=== PATIENT | male | born 1965 | race Caucasian/White ===

== ENCOUNTER 2017-02-22 12:46 | Emergency (ER) | payer OTHER ==
[2017-02-22 13:05] VITALS: BP 126/89
[2017-02-22] MEDS ORDERED: Lidocaine 1% MPF* 2 ML VIAL INJ ONE (13:20)
--- NOTE | 2017-02-22 13:58 | ED ---
Laceration/Wound HPI - HPI Summary HPI Summary: Patient presents to the with laceration to the webbing of the 4th and 5th fingers of the right hand from a glass jar 1 hour prior to arrival. Minimal blood loss. Tetanus UTD. He denies pain, numbness or tingling. Denies temperature or color changes. Denies any other symptoms and otherwise feels well. - History of Current Complaint Stated Complaint: HAND LAC Time Seen by Provider: 02/22/17 13:09 Hx Obtained From: Patient Mechanism of Injury: Sharp/Blunt Trauma Onset/Duration: Sudden Onset Aggravating: Nothing Alleviating: Nothing Timing: Constant Onset Severity: Mild Current Severity: Mild Pain Intensity: 1 Pain Scale Used: 0-10 Numeric Related Hx: Dominant Hand (Right) - Allergy/Home Medications Allergies/Adverse Reactions: Allergies Allergy/AdvReac Type Severity Reaction Status Date / Time No Known Allergies Allergy Verified 02/22/17 13:05 PMH/Surg Hx/FS Hx/Imm Hx Previously Healthy: Yes Endocrine/Hematology History: Denies: Hx Diabetes, Hx Thyroid Disease Cardiovascular History: Denies: Hx Hypertension Respiratory History: Denies: Hx Asthma, Hx Chronic Obstructive Pulmonary Disease (COPD) GI History: Denies: Hx Ulcer - Surgical History Surgery Procedure, Year, and Place: Vasectomy Infectious Disease History: No Infectious Disease History: Denies: Hx Hepatitis, Hx Human Immunodeficiency Virus (HIV), Traveled Outside the in Last 30 Days - Social History Occupation: Employed Full-time Lives: With Family Alcohol Use: Occasionally Hx Substance Use: No Substance Use Type: Reports: None Hx Tobacco Use: No Smoking Status (MU): Never Smoked Tobacco Review of Systems Constitutional: Negative Eyes: Negative Cardiovascular: Negative Respiratory: Negative Genitourinary: Negative Positive: no symptoms reported, see HPI Positive: Other - laceration to the right webbing of the 4th and 5th fingers Neurological: Negative Psychological: Normal All Other Systems Reviewed And Are Negative: Yes Physical Exam Triage Information Reviewed: Yes Vital Signs On Initial Exam: Initial Vitals Temp Pulse Resp BP Pulse Ox 98.8 F 70 16 126/89 98 02/22/17 12:59 02/22/17 12:59 02/22/17 12:59 02/22/17 12:59 02/22/17 12:59 Vital Signs Reviewed: Yes Appearance: Positive: Well-Appearing, Well-Nourished Skin: Positive: Warm, Skin Color Reflects Adequate Perfusion, Other - laceration to the right webbing of the 4th and 5th fingers Eyes: Positive: Normal, JAGJIT Neck: Positive: Supple, No Lymphadenopathy Respiratory/Lung Sounds: Positive: Clear to Auscultation, Breath Sounds Present Cardiovascular: Positive: Normal, RRR, Pulses are Symmetrical in both Upper and Lower Extremities Musculoskeletal: Positive: Normal, Strength/ROM Intact Neurological: Positive: Sensory/Motor Intact, Alert, Oriented to Person Place, Time Psychiatric: Positive: Normal Diagnostics - Vital Signs Vital Signs Temp Pulse Resp BP Pulse Ox 02/22/17 12:59 98.8 F 70 16 126/89 98 - Laboratory Lab Statement: Any lab studies that have been ordered have been reviewed, and results considered in the medical decision making process. Laceration Repair Course/Dx - Course Course Of Treatment: laceration to the right webbing of the 4th and 5th fingers from a glass object. tetanus UTD. Prefers adhesive glue. It was explained he would need glue plus to isidro tape the 2 fingers together so the laceration does not splint open more. He agrees. 3 layers adhesive glue applied. Wrapped with gauze after dried and isidro taped the 2 fingers together. - Differential Dx Differental Diagnoses: Avulsion, Suture Removal, Tendon Laceration - Clinical Impression Provider Diagnoses: Laceration Discharge - Discharge Plan Condition: Stable Disposition: HOME Patient Education Materials: Skin Adhesive Care (ED) Referrals: No Primary Care Phys,NOPCP [Primary Care Provider] - Additional Instructions: Keep the area covered and wrapped with fingers isidro taped for 2-3 days. If you notice then the glue begins to come off and the area begins to open, isidro tape again for another 2 days. If you develop redness, red streaking up the hand, warmth or swelling - return to the right away Images - Images Hands: 1 - laceration to the right webbing of the 4th and 5th fingers; patient prefers to try adhesive.
== END 2017-02-22 13:54 | disposition home or self-care (01) ==
LOC: UCEAST 12:46
DX: S61.411A Laceration without foreign body of right hand, initial encounter (principal); W25.XXXA Contact with sharp glass, initial encounter; Y92.9 Unspecified place or not applicable
CPT/HCPCS: 99211; G0463

== ENCOUNTER 2018-11-14 07:02 | Emergency (ER) | payer OTHER ==
[2018-11-14 07:23] VITALS: BP 128/80
--- NOTE | 2018-11-14 07:36 | UC ---
General HPI - HPI Summary HPI Summary: Patient states he has URI symptoms for the past week. Mainly dry cough and sore throat. [place] worse yesterday and felt warm. Today feels slightly better. No fever. Good PO. Taking dayquil on and off as well as ibuprofen. No N/V/D. No hx of inhalers. No smoking hx. Meds; Reviewed - History of Current Complaint Chief Complaint: UCRespiratory Stated Complaint: COLD SYMP Time Seen by Provider: 11/14/18 07:28 Pain Intensity: 3 - Allergy/Home Medications Allergies/Adverse Reactions: Allergies Allergy/AdvReac Type Severity Reaction Status Date / Time No Known Allergies Allergy Verified 11/14/18 07:18 Home Medications: Home Medications Ascorbic Acid [Vitamin C] 1 tab PO DAILY 11/14/18 [History Confirmed 11/14/18] Dm/PE/Acetaminophen/Doxylamine [Vicks Dayquil/Nyquil Cold] 1 mis PO ONCE PRN [History Confirmed 11/14/18] Ibuprofen 200 mg PO ONCE PRN 11/14/18 [History Confirmed 11/14/18] PMH/Surg Hx/FS Hx/Imm Hx Previously Healthy: Yes - Surgical History Surgical History: Yes Surgery Procedure, Year, and Place: Vasectomy - Social History Alcohol Use: Occasionally Substance Use Type: None Smoking Status (MU): Never Smoked Tobacco - Immunization History Most Recent Tetanus Shot: 07/2016 Review of Systems All Other Systems Reviewed And Are Negative: Yes Physical Exam Triage Information Reviewed: Yes Appearance: Well-Appearing Vital Signs: Initial Vital Signs Temp 98.7 F 11/14/18 07:15 Pulse 66 11/14/18 07:15 Resp 18 11/14/18 07:15 BP 128/80 11/14/18 07:15 Pulse Ox 100 11/14/18 07:15 Vital Signs Reviewed: Yes ENT: Positive: Pharyngeal erythema, TMs normal Neck: Positive: Supple, Nontender Respiratory: Positive: Lungs clear, Normal breath sounds Cardiovascular: Positive: RRR, No Murmur Course/Dx - Course Course Of Treatment: This is a 53 yr old with cough and sore throat Assessment Nontoxic appearing Plan Recommend supportive care Continue rest, fluids, ibuprofen as needed for pain/fever Can also try mucinex dm or delsym as a cough suppressant If symptoms persist or worsen, recommend follow up with your PCP or return to urgent care - Diagnoses Provider Diagnosis: Viral syndrome Discharge - Sign-Out/Discharge Documenting (check all that apply): Patient Departure All imaging exams completed and their final reports reviewed: No Studies - Discharge Plan Condition: Good Disposition: HOME Patient Education Materials: Viral Syndrome (ED) Forms: *Work Release Referrals: No Primary Care Phys,NOPCP [Primary Care Provider] - Additional Instructions: Recommend supportive care Continue rest, fluids, ibuprofen as needed for pain/fever Can also try mucinex dm or delsym as a cough suppressant If symptoms persist or worsen, recommend follow up with your PCP or return to urgent care - Billing Disposition and Condition Condition: GOOD Disposition: Home
== END 2018-11-14 07:45 | disposition home or self-care (01) ==
LOC: UCEAST 07:02
DX: B34.9 Viral infection, unspecified (principal); R05 Cough; J02.9 Acute pharyngitis, unspecified
CPT/HCPCS: 99211; G0463